=== PATIENT | female | born 1935 | race Caucasian/White ===

== ENCOUNTER 2017-09-26 18:27 | Inpatient (IN) | payer OTHER ==
[~2017-09-26] VITALS: Ht 160 cm; Wt 69.0 kg
[~2017-09-26 18:27] MED LIST: BG MC; ECO81 PO; GLU500 PO; IPRATROPIUM BROM3 M2 HHN; LEVAQUIN750 MG PO; PRI20 PO; ZOC20 PO
[2017-09-26 20:06] LABS: BASOPHIL % 0.6 % (0-2); PLATELET COUNT 356 x10^3mcL (130-400); RED CELL DISTRIBUTION WIDTH 13.7 % (11.5-14.5)
[2017-09-26 20:09] LABS: CALCIUM 9.3 mg/dL (8.5-10.1); CARBON DIOXIDE 23.7 mmol/L (21-32); CHLORIDE SERUM 106 mmol/L (98-107); GLUCOSE SERUM 118 mg/dL (74-106); POTASSIUM SERUM 3.8 mmol/L (3.5-5.1); SODIUM SERUM 141 mmol/L (136-145)
[2017-09-26 20:20] LABS: ALKALINE PHOSPHATASE 89 U/L (46-116); ALT/SGPT 16 U/L (14-59); AMYLASE 75 U/L (25-115); AST/SGOT 28 U/L (15-37); BILIRUBIN TOTAL 0.33 mg/dL (0.20-1.00); LIPASE 281 IU/L (73-393); T4(THYROXINE) 8.6 ug/dL (4.7-13.3); TOTAL PROTEIN, SERUM 8.1 g/dL (6.4-8.2)
[2017-09-26 20:22] LABS: ALBUMIN 2.8 g/dL (3.4-5.0); CHOLESTEROL 112 mg/dL (<200); HDL CHOLESTEROL 34 mg/dL (40-60)
[2017-09-26 21:38] LABS: microscopic required? YES; urine erythrocyte NEGATIVE (NEGATIVE)
[2017-09-26 21:46] LABS: AMPHETAMINE QUAL UR NONE DETECTED (NEG <=1000)
[2017-09-26 22:23] LABS: MAGNESIUM 2.2 mg/dL (1.8-2.4); PHOSPHOROUS 3.2 mg/dL (2.5-4.9)
[2017-09-26 22:29] LABS: CHOLESTEROL/HDL RATIO 3.4
[2017-09-26 22:40] VITALS: BP 131/61
[2017-09-26 23:21] VITALS: BP 131/61
[2017-09-27 00:12] VITALS: Ht 160 cm; Wt 69.0 kg
[2017-09-27 05:35] VITALS: BP 131/62
[2017-09-27 09:33] LABS: PLATELET COUNT 309 x10^3mcL (130-400); RED CELL DISTRIBUTION WIDTH 13.7 % (11.5-14.5)
[2017-09-27 09:37] LABS: BASOPHIL % 0 % (0-2); CHLORIDE SERUM 107 mmol/L (98-107); POTASSIUM SERUM 4.1 mmol/L (3.5-5.1); SODIUM SERUM 138 mmol/L (136-145)
[2017-09-27 09:50] LABS: CALCIUM 8.4 mg/dL (8.5-10.1); CARBON DIOXIDE 19.4 mmol/L (21-32); GLUCOSE SERUM 256 mg/dL (74-106); MAGNESIUM 1.8 mg/dL (1.8-2.4); PHOSPHOROUS 2.5 mg/dL (2.5-4.9)
[2017-09-27 09:53] VITALS: BP 127/70
[2017-09-27 10:02] VITALS: BP 127/70
[2017-09-27 12:38] VITALS: BP 143/57
[2017-09-27] MEDS ORDERED: LEVAQUIN750 MG PO (15:03)
[2017-09-27] MEDS ORDERED: CLINDAMYCIN HC300 MG PO (15:03)
[2017-09-27] MEDS ORDERED: LAC PO (15:05)
[2017-09-27] MEDS ORDERED: DIT5 PO (15:06)
[2017-09-27] MEDS ORDERED: VENTOLIN H0.09 MG/A1 INH (15:12)
[2017-09-27 15:49] VITALS: BP 143/57
== END 2017-09-27 16:31 | disposition home or self-care (01) | DRG 177 ==
LOC: ED 18:27 → DU 21:06
PROVIDERS: Emergency Medicine; Family Medicine
DX: J69.0 Pneumonitis due to inhalation of food and vomit (principal); N17.0 Acute kidney failure with tubular necrosis; E43 Unspecified severe protein-calorie malnutrition; I42.9 Cardiomyopathy, unspecified; E11.65 Type 2 diabetes mellitus with hyperglycemia; R32 Unspecified urinary incontinence; Z79.84 Long term (current) use of oral hypoglycemic drugs; Z79.82 Long term (current) use of aspirin; Z68.27 Body mass index [BMI] 27.0-27.9, adult
CPT/HCPCS: 36600; 82962; 83880; 87804; 94150; J1956; J2930; J3490; J7030; J7613; J7620; J7644; Q0092

== ENCOUNTER 2019-03-10 11:09 | Emergency (ER) | payer OTHER, MEDICAID ==
[~2019-03-10] VITALS: Ht 160 cm; Wt 71.2 kg
[~2019-03-10 11:09] MED LIST changes: +CLINDAMYCIN HC300 MG PO; +DIT5 PO; +LAC PO; +VENTOLIN H0.09 MG/A1 INH
[2019-03-10 11:35] VITALS: Ht 160 cm; Wt 71.2 kg
[2019-03-10 12:51] VITALS: BP 158/83
== END 2019-03-10 12:51 | disposition home or self-care (01) ==
LOC: ED 11:09
DX: L03.114 Cellulitis of left upper limb (principal); E11.9 Type 2 diabetes mellitus without complications; Z88.0 Allergy status to penicillin
CPT/HCPCS: 82962

== ENCOUNTER 2019-11-10 23:11 | Emergency (ER) | payer OTHER, MEDICAID ==
[~2019-11-10] VITALS: Ht 160 cm; Wt 71.7 kg
[2019-11-10 23:24] VITALS: Ht 160 cm; Wt 71.7 kg
[2019-11-11 00:52] LABS: PLATELET COUNT 225 x10^3mcL (130-400); RED CELL DISTRIBUTION WIDTH 13.6 % (11.5-14.5)
[2019-11-11 01:12] LABS: CALCIUM 9.4 mg/dL (8.5-10.1); CARBON DIOXIDE 24.5 mmol/L (21-32); CHLORIDE SERUM 106 mmol/L (98-107); GLUCOSE SERUM 141 mg/dL (74-106); POTASSIUM SERUM 4.1 mmol/L (3.5-5.1); SODIUM SERUM 140 mmol/L (136-145)
[2019-11-11 01:17] LABS: ALBUMIN 3.7 g/dL (3.4-5.0); ALKALINE PHOSPHATASE 64 U/L (46-116); ALT/SGPT 34 U/L (14-59); AST/SGOT 29 U/L (15-37); BILIRUBIN TOTAL 0.4 mg/dL (0.20-1.00); LIPASE 223 IU/L (73-393); TOTAL PROTEIN, SERUM 8.4 g/dL (6.4-8.2)
[2019-11-11 02:32] VITALS: BP 134/74
== END 2019-11-11 02:32 | disposition home or self-care (01) ==
LOC: ED 23:11
PROVIDERS: Emergency Medicine
DX: B34.9 Viral infection, unspecified (principal); I10 Essential (primary) hypertension; E11.9 Type 2 diabetes mellitus without complications; Z88.0 Allergy status to penicillin
CPT/HCPCS: 82962; J2405; J7030